=== PATIENT | female | born 1995 | race Caucasian/White ===

== ENCOUNTER 2022-07-18 10:09 | Outpatient (CLI) | payer OTHER, SELFPAY ==
[2022-07-18 11:51] LABS: Basophils Percent Auto 0.3 % (0.2-1.2); Eosinophils Absolute Auto 0.2 K/mm3 (0-0.3); Eosinophils Percent Auto 1.9 % (0-4.4); Hematocrit 35.2 % (37.0-47.0); Hemoglobin 11.7 g/dL (12.0-15.0); Immature Granulocyte Absolute 0.15 K/mm3 (0.00-0.031); Immature Granulocyte Percent A 1.4 % (0-0.5); Lymphocytes Absolute Auto 2.07 K/mm3 (0.9-3.2); Lymphocytes Percent Auto 19.4 % (18.3-44.2); Mean Corpuscular HGB Conc 33.2 g/dl (32-36); Mean Corpuscular Hemoglobin 31.8 pg (26-34); Mean Corpuscular Volume 95.7 fl (80-100); Mean Platelet Volume 9.3 fl (7.4-10.4); Monocytes Absolute Auto 0.6 K/mm3 (0.1-0.6); Monocytes Percent Auto 5.5 % (2.6-8.5); Neutrophils Absolute Auto 7.7 K/mm3 (1.3-6.7); Neutrophils Percent Auto 71.5 % (45.5-73.1); Platelet Count Result 286 k/mm3 (150-375); Red Blood Count 3.68 M/mm3 (4.2-5.4); Red Cell Distribution Width 12.7 % (11.5-14.5); White Blood Count 10.7 K/mm3 (4.5-10.0)
[2022-07-18 12:08] LABS: Glucose 1 Hour PP 50gm Dose 121 mg/dL
[2022-07-18 12:47] LABS: HIV 1/2 Ab P24 Ag Result Negative (Negative)
== END 2022-07-18 10:10 | disposition home or self-care (01) ==
PROVIDERS: PCP Student in an Organized Health Care Education/Training Program; Visit Provider Student in an Organized Health Care Education/Training Program
DX: Z34.90 Encounter for supervision of normal pregnancy, unspecified, unspecified trimester (principal); Z3A.00 Weeks of gestation of pregnancy not specified
CPT/HCPCS: 36415; 82947; 85025; 86703; G0432

== ENCOUNTER 2022-09-14 08:24 | Observation (INO) | payer OTHER, SELFPAY ==
[2022-09-14] VITALS (29 sets, daily range): BP systolic 101–128; BP diastolic 62–85; PULSE 25–137; TEMP 37.1–37.3; O2SAT 84–100; BMI 25.9
--- NOTE | 2022-09-14 08:40 | OBADM ---
This patient, Helder Murdock, admitted to the OB room OB Post 116 for observation. Patient/family oriented to hospital policies and general routines including ID bracelet, bed and alarms, visiting hours, pain management, procedures, bathroom and other care routines, personal items, smoking policy, room service/diet, and visiting hours. Patient/Family are encouraged to report perceived risks to care and to ask questions if they do not understand what they are told or what they should do.
[2022-09-14] MEDS: NIFEdipine 10 MG CAPSULE 20 MG PO (09:32)
[2022-09-14] MEDS: BETAMETHASONE SOD PHOS/ACETATE 30 MG/5 ML VIAL 12 MG IM (09:35)
--- NOTE | 2022-09-15 11:27 | PM.OBTRLD ---
OB - Triage/Final Diagnosis Visit Information Date of evaluation: 09/14/22 Reason for evaluation: threatened labor Comments/Additional reasons for admission: I have assessed the risk for this patient, Helder Murdock, and determined that she would benefit from observation care. Evaluation Vital signs: Vital Signs - 24 hr 09/14/22 11:29 09/14/22 11:34 09/14/22 11:39 Pulse Rate Blood Pressure Pulse Oximetry 97 96 95 09/14/22 11:44 09/14/22 11:49 09/14/22 11:54 Pulse Rate Blood Pressure Pulse Oximetry 93 100 97 09/14/22 11:59 09/14/22 12:00 09/14/22 12:04 Pulse Rate 105 H Blood Pressure 104/70 Pulse Oximetry 95 100 09/14/22 12:09 09/14/22 12:14 09/14/22 12:19 Pulse Rate Blood Pressure Pulse Oximetry 96 94 96 09/14/22 12:24 09/14/22 12:29 Pulse Rate Blood Pressure Pulse Oximetry 97 97
== END 2022-09-14 12:45 | disposition home or self-care (01) ==
PROVIDERS: Admitting Provider Student in an Organized Health Care Education/Training Program; Visit Provider Student in an Organized Health Care Education/Training Program
DX: O47.03 False labor before 37 completed weeks of gestation, third trimester (principal); Z3A.35 35 weeks gestation of pregnancy
CPT/HCPCS: 96372; A9270; G0378; G0379; J0702

== ENCOUNTER 2022-09-15 09:28 | Outpatient (RCR) | payer OTHER, SELFPAY ==
[2022-09-13 11:00] VITALS: BP 108/72; PULSE 115
--- NOTE | ~2022-09-15 | US_ITS ---
EXAMINATION: US OB BPP wo non-stress DATE: 09/13/2022 11:01 WASTEWATER TREATMENT PLANT ATTENDANT INDICATION: Positive antiphospholipids TECHNIQUE: Real-time transabdominal obstetric ultrasound. FINDINGS: There is a single living fetus in vertex presentation. The placenta is fundal without placenta previ a. cardiac activity and movement is noted with a heart rate of 146 beats per minute. Biophysical profile: breathin of 2 movement: 2 of 2 tone: 2 of 2 Amniotic flud pocket: 2 of 2 Total score: 8 of 8 IMPRESSION: 1. Single living intrauterine in vertex presentation. 2: Total biophysical profile score of 8/8. Reviewed, dictated and finalized at location B. EW[employer] TREATMENT PLANT ATTENDANT
== END 2022-11-03 12:46 | disposition home or self-care (01) ==
LOC: ANHOBOP 09:28
PROVIDERS: Visit Provider Student in an Organized Health Care Education/Training Program
DX: O99.119 Other diseases of the blood and blood-forming organs and certain disorders involving the immune mechanism complicating pregnancy, unspecified trimester (principal); D68.61 Antiphospholipid syndrome; Z3A.35 35 weeks gestation of pregnancy
CPT/HCPCS: 59025; 76819

== ENCOUNTER 2022-09-15 09:28 | Outpatient (CLI) | payer OTHER, SELFPAY ==
[2022-09-15 10:00] VITALS: BMI 25.9
[2022-09-15] MEDS: BETAMETHASONE SOD PHOS/ACETATE 30 MG/5 ML VIAL 12 MG IM (11:05)
== END 2022-09-15 11:20 | disposition home or self-care (01) ==
LOC: ANHOBOP 09:38 → ANHLDR 09:39
PROVIDERS: Visit Provider Student in an Organized Health Care Education/Training Program
DX: O13.9 Gestational [pregnancy-induced] hypertension without significant proteinuria, unspecified trimester (principal); Z3A.00 Weeks of gestation of pregnancy not specified
CPT/HCPCS: 59025; 96372; 99199; J0702

== ENCOUNTER 2022-09-16 22:32 | Observation (INO) | payer OTHER, SELFPAY ==
[2022-09-16 22:45] VITALS: BMI 25.9
[2022-09-16 22:55] VITALS: BP 123/85; PULSE 99
[2022-09-16 23:00] VITALS: BP 113/80; PULSE 100
[2022-09-16 23:13] LABS: Add Urine Microscopic? YES; Appearance Urine Clear (Clear); Bilirubin Urine Negative (Negative); Blood Urine Negative (Negative); Color Urine Light Yellow (Yellow); Glucose Urine UA Negative (Negative); Ketones Urine 2+ mg/dL (Negative); Leukocyte Esterase Ur 2+ LEU/UL (Negative); Nitrate Urine Negative (Negative); Protein Urine Negative (Negative); Urobilinogen Urine 0.2 mg/dL (<2.0)
[2022-09-16 23:15] VITALS: BP 118/79; PULSE 87
[2022-09-16 23:19] LABS: Bacteria Urine 1+ /hpf; Mucus Urine Rare /lpf; Squamous Epithelial Cell Urine Few /hpf (Few); WBC Urine 16-20 /hpf
[2022-09-16 23:30] VITALS: BP 110/83; PULSE 90
[2022-09-16 23:45] VITALS: BP 114/77; PULSE 91
[2022-09-17] VITALS: BP 114/78; PULSE 84
--- NOTE | 2022-09-17 00:10 | OBADM ---
This patient, Helder Murdock, admitted to the OB room OB Post 115 for observation. Patient/family oriented to hospital policies and general routines including ID bracelet, bed and alarms, visiting hours, pain management, procedures, bathroom and other care routines, personal items, smoking policy, room service/diet, and visiting hours. Patient/Family are encouraged to report perceived risks to care and to ask questions if they do not understand what they are told or what they should do.
[2022-09-17 00:15] VITALS: BP 114/74; PULSE 90
[2022-09-17 00:30] VITALS: BP 110/73; PULSE 90
--- NOTE | 2022-09-17 07:54 | PM.OBTRLD ---
OB - Triage/Final Diagnosis Visit Information Date of evaluation: 09/16/22 Reason for evaluation: threatened labor Comments/Additional reasons for admission: I have assessed the risk for this patient, Helder Murdock, and determined that she would benefit from observation care. Evaluation Laboratory results: Laboratory Tests 09/16/22 22:56 Urine Color Light yellow Urine Appearance Clear Urine pH 6.0 Ur Specific [place] 1.020 Urine Protein Negative Urine Glucose (UA) Negative Urine Ketones 2+ H Ur Blood (Man) Negative Urine Nitrate Negative Urine Bilirubin Negative Urine Urobilinogen 0.2 Leukocyte Esterase Rfl 2+ H Urine RBC 3-5 H Urine WBC 16-20 H Ur Squamous Epith Cells Few Urine Bacteria 1+ H Urine Mucus Rare Vital signs: Vital Signs - 24 hr 09/16/22 22:55 09/16/22 23:00 09/16/22 23:15 Pulse Rate 99 100 87 Blood Pressure 123/85 113/80 118/79 09/16/22 23:30 09/16/22 23:45 09/17/22 00:00 Pulse Rate 90 91 84 Blood Pressure 110/83 114/77 114/78 09/17/22 00:15 09/17/22 00:30 Pulse Rate 90 90 Blood Pressure 114/74 110/73
== END 2022-09-17 00:45 | disposition home or self-care (01) ==
PROVIDERS: Admitting Provider Student in an Organized Health Care Education/Training Program; Visit Provider Student in an Organized Health Care Education/Training Program
DX: O47.03 False labor before 37 completed weeks of gestation, third trimester (principal); Z3A.36 36 weeks gestation of pregnancy
CPT/HCPCS: 81001; 87086; G0378; G0379

== ENCOUNTER 2022-09-21 16:20 | Observation (INO) | payer OTHER, SELFPAY ==
[2022-09-21 16:51] VITALS: BP 124/89; PULSE 111
[2022-09-21 17:00] VITALS: BP 119/84; PULSE 114
[2022-09-21 17:15] VITALS: BP 122/81; PULSE 99
[2022-09-21 17:16] VITALS: BP 122/81; PULSE 99
[2022-09-21 17:17] VITALS: BMI 26.6
--- NOTE | 2022-09-21 17:17 | OBADM ---
This patient, Helder Murdock, admitted to the OB room Labor/Delivery/Recovery 106 for observation. Patient/family oriented to hospital policies and general routines including ID bracelet, bed and alarms, visiting hours, pain management, procedures, bathroom and other care routines, personal items, smoking policy, room service/diet, and visiting hours. Patient/Family are encouraged to report perceived risks to care and to ask questions if they do not understand what they are told or what they should do.
[2022-09-21 17:30] VITALS: BP 125/86; PULSE 97
[2022-09-21 17:45] VITALS: BP 118/79; PULSE 107
--- NOTE | 2022-09-28 07:26 | PM.OBTRLD ---
OB - Triage/Final Diagnosis Visit Information Reason for evaluation: threatened labor Comments/Additional reasons for admission: I have assessed the risk for this patient, Helder Murdock, and determined that she would benefit from observation care.
== END 2022-09-21 18:05 | disposition home or self-care (01) ==
PROVIDERS: Admitting Provider Obstetrics & Gynecology; Visit Provider Obstetrics & Gynecology
DX: O47.03 False labor before 37 completed weeks of gestation, third trimester (principal); Z3A.36 36 weeks gestation of pregnancy
CPT/HCPCS: G0378; G0379

== ENCOUNTER 2022-10-05 06:07 | Inpatient (IN) | payer OTHER, SELFPAY ==
[2022-10-05] VITALS (70 sets, daily range): BP systolic 85–169; BP diastolic 50–148; PULSE 75–168; RESP 16–18; TEMP 36.1–37.6; O2SAT 82–100; BMI 23.4
[2022-10-05] MEDS: LACTATED RINGERS 1,000 ML 125 ML IV CONT (06:54)
[2022-10-05 06:55] LABS: Basophils Absolute Auto 0.1 K/mm3 (0.0-0.1); Basophils Percent Auto 0.6 % (0.2-1.2); Eosinophils Absolute Auto 0.1 K/mm3 (0-0.3); Eosinophils Percent Auto 1.2 % (0-4.4); Hematocrit 34.9 % (37.0-47.0); Hemoglobin 11.3 g/dL (12.0-15.0); Immature Granulocyte Absolute 0.13 K/mm3 (0.00-0.031); Immature Granulocyte Percent A 1.5 % (0-0.5); Lymphocytes Absolute Auto 2.82 K/mm3 (0.9-3.2); Lymphocytes Percent Auto 32.5 % (18.3-44.2); Mean Corpuscular HGB Conc 32.4 g/dl (32-36); Mean Corpuscular Hemoglobin 29.1 pg (26-34); Mean Corpuscular Volume 89.9 fl (80-100); Mean Platelet Volume 10.5 fl (7.4-10.4); Monocytes Absolute Auto 0.5 K/mm3 (0.1-0.6); Monocytes Percent Auto 6.2 % (2.6-8.5); Platelet Count Result 215 k/mm3 (150-375); Red Blood Count 3.88 M/mm3 (4.2-5.4); Red Cell Distribution Width 14.7 % (11.5-14.5); White Blood Count 8.7 K/mm3 (4.5-10.0)
[2022-10-05] MEDS: OXYTOCIN 30 UNITS/NS 500 ML 30 UNITS/500 ML BAG IV CONT (06:59)
--- NOTE | 2022-10-05 07:17 | PM.IMHP ---
H&P: HPI History of Present Illness Date/Time: 10/05/22 07:17 Chief Complaint: Intrauterine at term antiphospholipid antibody syndrome Narrative: 26 yo at 38w6d who presents for IOL for antiphospholipid antibody syndrome. Pt has been on lovenox and aspirin throughout her . She was transitioned to Heparin at 36w. Her has been uncomplicated thus far. Review of Systems Cardiovascular: Cardiovascular: Denies chest pain, Denies leg edema, Denies palpitations, Denies dyspnea and Denies dyspnea on exertion Respiratory: Respiratory: Denies cough, Denies dyspnea and Denies dyspnea on exertion Gastrointestinal: Gastrointestinal: Denies abdominal pain, Denies constipation, Denies diarrhea, Denies nausea and Denies vomiting Genitourinary: Genitourinary: Denies hematuria, Denies urinary frequency, Denies dysuria, Denies pelvic pain, Denies urinary incontinence and Denies vaginal discharge Neurologic: Reports system reviewed and no additional complaints, except as documented Psychiatric: Psychiatric: Reports no additional psychiatric complaints Endocrine: Endocrine: Denies palpitations PMF Past Medical History Medical History Anti-phospholipid antibody syndrome rx meds Family History Family History Grandparent Cerebrovascular accident maternal grandmother Breast cancer maternal grandmother double mastectomy Social History Social History Smoking status: Never smoker Alcohol intake: never Substance use: never Substance use type: does not use Additional living arrangements comments: Additional occupation/education comments: homemaker Gender identity (if verbalized by the patient): Female Sexual Orientation (if Verbalized by the Patient): Straight or Heterosexual Spiritual care concerns: No Meds Home Medications and Allergies Home Medications Medication Instructions Recorded Confirmed Type heparin (porcine) 10,000 unit/mL 5,000 unit subcut Q12H 09/13/22 09/21/22 History injection solution Allergies Allergy/AdvReac Type Severity Reaction Status Date / Time cefaclor [From Ceclor] Allergy Intermediate Rash Verified 09/28/22 10:45 cefazolin [From Ancef] Allergy Intermediate Rash Verified 09/28/22 10:45 Vital Signs Vital Signs - 24 hr 10/05/22 07:02 10/05/22 07:00 10/05/22 07:15 Temperature 97 F L Pulse Rate 106 H 104 H Blood Pressure 122/81 118/88 Exam Const: General: no acute distress Eyes: EOM: EOMs intact bilaterally Neck: Neck: supple Thyroid: thyroid normal Chest: Breast/axilla inspection: normal inspection of the breasts Breast/axilla palpation: normal palpation of the breasts, normal palpation of the axillae and no axillary lymphadenopathy Resp: Effort & Inspection: normal respiratory effort Auscultation: clear to auscultation bilaterally Cardio: Rate: regular rate Rhythm: regular rhythm GI: Inspection: non-distended and other (Gravid) GI Palp: Yes Soft to palpation, No Tenderness to palpation present (GI) and No Guarding due to palpation present (GI) Auscultation: normal bowel sounds : Speculum Exam - Vagina: No vaginal bleeding OB/external & speculum: external exam normal; No vaginal bleeding Skin: General skin exam: normal color and no rashes or lesions noted Neuro: Cognition (Neuro): normal cognition Speech: normal speech Extrem: General: normal to inspection Psych: Mental Status: mental status grossly normal Affect: normal affect H&P: Results Labs Labs: Short CBC 10/05/22 Range/Units 06:40 WBC 8.7 (4.5-10.0) K/mm3 Hgb 11.3 L (12.0-15.0) g/dL Hct 34.9 L (37.0-47.0) % Plt Count 215 (150-375) k/mm3 Assessment and Plan Assessment and plan (1) Anti-phospholipid antibody syndrome: Code(s
--- NOTE | 2022-10-05 07:18 | LDADM ---
This patient, Helder Murdock, was admitted to Labor/Delivery/Recovery 104 on 10/05/22 at 06:07. Plans for labor, pain management and were discussed with patient. Patient/family oriented to hospital policies and general routines including ID bracelet, bed and alarms, visiting hours, pain management, procedures, bathroom and other care routines, personal items, smoking policy, room service/diet and guest tray routines, security routines, and visiting hours. Patient/Family are encouraged to report perceived risks to care and to ask questions if they do not understand what they are told or what they should do. See OBIX for further documentation.
[2022-10-05 07:41] LABS: HIV 1/2 Ab P24 Ag Result Negative (Negative)
--- NOTE | 2022-10-05 08:44 | WPDANESEPP ---
Anes - Eval Pre Procedure Procedure: Labor epidural Date/Time: 10/05/22 08:44 Surgeon: Lashon Preop Diagnosis: Pain during labor Pre Op Diagnosis: Induction of Labor Patient Data Age: 26 Gender: F Height: 1.52 m Weight: 54.5 kg Last Vital Signs Temp 36.1 C L 10/05/22 07:00 Pulse 97 10/05/22 08:30 BP 132/93 H 10/05/22 08:30 Allergies Allergy/AdvReac Type Severity Reaction Status Date / Time cefaclor [From Ceclor] Allergy Intermediate Rash Verified 09/28/22 10:45 cefazolin [From Ancef] Allergy Intermediate Rash Verified 09/28/22 10:45 Home Medications Medication Instructions Recorded Confirmed Type heparin (porcine) 10,000 unit/mL 5,000 unit subcut Q12H 09/13/22 10/05/22 History injection solution Laboratory Tests 10/05/22 10/05/22 10/05/22 06:40 06:40 06:40 WBC 8.7 K/mm3 K/mm3 (4.5-10.0) RBC 3.88 M/mm3 L M/mm3 (4.2-5.4) Hgb 11.3 g/dL L g/dL (12.0-15.0) Hct 34.9 % L % (37.0-47.0) MCV 89.9 fl fl (80-100) MCH 29.1 pg pg (26-34) MCHC 32.4 g/dl g/dl (32-36) RDW 14.7 % H % (11.5-14.5) Plt Count 215 k/mm3 k/mm3 (150-375) MPV 10.5 fl H fl (7.4-10.4) Immature Gran % (Auto) 1.5 % H % (0-0.5) Neut % (Auto) 58.0 % % (45.5-73.1) Lymph % (Auto) 32.5 % % (18.3-44.2) [place] % (Auto) 6.2 % % (2.6-8.5) Eos % (Auto) 1.2 % % (0-4.4) Baso % (Auto) 0.6 % % (0.2-1.2) Lymph # (Auto) 2.82 K/mm3 K/mm3 (0.9-3.2) [place] # (Auto) 0.5 K/mm3 K/mm3 (0.1-0.6) Eos # (Auto) 0.1 K/mm3 K/mm3 (0-0.3) Baso # (Auto) 0.1 K/mm3 K/mm3 (0.0-0.1) Abs Immat Gran (auto) 0.13 K/mm3 H K/mm3 (0.00-0.031) Absolute Neuts (auto) 5.0 K/mm3 K/mm3 (1.3-6.7) Absolute Nucleated RBC 0.0 K/mm3 K/mm3 (0.0-0.012) Nucleated RBC % 0.0 % % (0.0-0.2) RPR Pending HIV 1&2 Ab/P24 Ag 4thGn Negative (Negative) Blood Type Antibody Screen 10/05/22 06:40 WBC RBC Hgb Hct MCV MCH MCHC RDW Plt Count MPV Immature Gran % (Auto) Neut % (Auto) Lymph % (Auto) [place] % (Auto) Eos % (Auto) Baso % (Auto) Lymph # (Auto) [place] # (Auto) Eos # (Auto) Baso # (Auto) Abs Immat Gran (auto) Absolute Neuts (auto) Absolute Nucleated RBC Nucleated RBC % RPR HIV 1&2 Ab/P24 Ag 4thGn Blood Type A Positive Antibody Screen Negative Patient hx anesthesia problems: none Family hx anesthesia problems: none Results Review: All pre-operative results and documents have been reviewed as part of the pre-operative evaluation. [facility] Past Medical History Medical History Anti-phospholipid antibody syndrome rx meds Family History Family History Grandparent Cerebrovascular accident maternal grandmother Breast cancer maternal grandmother double mastectomy Social History Social History Smoking status: Never smoker Alcohol intake: never Substance use: never Substance use type: does not use Lack of Transportation: No Lack of Food: Never True Current Housing: I Have Housing Concerned About Future Housing: No Difficulty Paying Gas/Electric Bills: No Difficulty Paying for Meds: No Currently Unemployed: No Education: Bachelor's Degree Difficulty w/ Childcare or Family Care: No Additional living arrangements comments: Additional occupation/education comments: homemaker Gender identity (if verbalized by the patient): Female Sexual Orientation (if Verb
[2022-10-05] MEDS: LACTATED RINGERS 1,000 ML 999 ML IV CONT (08:49)
--- NOTE | 2022-10-05 10:51 | PM.OBPRVD ---
OB - Delivery Note Procedure Procedure: Patient pushed for a spontaneous vaginal delivery. The fetus was delivered atraumatically and placed on the maternal abdomen. The cord was clamped and cut after 1 minute of life. The cord was double clamped and cut and a segment of cord was collected for cord gases. Cord blood was collected for blood type and Coomb's testing. The placenta delivered spontaneously and was noted to be intact. The perineum was inspected and there was a 1st degree perineal laceration. The laceration was repaired with 3-0 vicryl in the usual fashion. The uterus was firm and good hemostasis was noted. The patient and fetus were stable in the delivery room. Induction method: Per Pitocin Protocol Delivery augmentation: Rupture of Membranes Delivery monitor: External FHT Route of delivery: Episiotomy description: None Laceration Description: Perineal - 1st Degree Delivery repair: vicryl Specimen: No Quantitative Blood Loss (ml): 250 Anesthesia type: Epidural Disposition: Floor () Complications: No immediate complications [place] Baby Date of : 10/05/22 Time of : 10:37 Weeks of gestation at delivery: 38 gender: Female Weight (pounds): 5 Weight (ounces): 15 presentation: vertex position: Right Occiput Anterior Placenta delivery description: Spontaneous Cord Vessel Description: 3 Vessels score one minute: 9 score five minutes: 9 AMG Delivery Billing Delivery Delivery: Delivery Charge
[2022-10-05] MEDS: OXYTOCIN 30 UNITS/NS 500 ML 30 UNITS/500 ML BAG 125 UNITS IV CONT (11:19)
--- NOTE | 2022-10-05 14:20 | PC.NURSE ---
Patient transferred to post room #279 via wheelchair. Support person present. Oriented to unit, room, information board, rooming in, admission packet and security measures. Patient verbalizes understanding.
[2022-10-05] MEDS: IBUPROFEN 600 MG TABLET PO (14:58)
[2022-10-05 16:29] LABS: Rapid Plasma Reagin Non-Reactive (NonReactive)
[2022-10-05] MEDS: ACETAMINOPHEN 325 MG TABLET 650 MG PO (19:58)
[2022-10-06 00:09] VITALS: BP 104/69; PULSE 82; RESP 18; TEMP 36.8; O2SAT 100
[2022-10-06] MEDS: IBUPROFEN 600 MG TABLET PO ×2 (00:09→08:08)
[2022-10-06 04:18] VITALS: BP 113/73; PULSE 74; RESP 18; TEMP 36.7; O2SAT 100
[2022-10-06 05:38] LABS: Hematocrit 32.4 % (37.0-47.0); Hemoglobin 10.6 g/dL (12.0-15.0)
--- NOTE | 2022-10-06 07:19 | WPDANLDPN2 ---
Anes-Prog Note L&D Date/Time: 10/06/22 07:19 Comfortable throughout: labor and delivery Neuraxial method: epidural Epidural/Spinal procedure site: clean & non-tender Neuro status: Neuro function grossly intact. Cardiovascular status: normal Respiratory status: normal Airway patency: baseline Mental status: baseline Post-Op hydration status: normal Vital Signs: Last Vital Signs Temp 36.7 C 10/06/22 04:18 Pulse 74 10/06/22 04:18 Resp 18 10/06/22 04:18 BP 113/73 10/06/22 04:18 Pulse Ox 100 10/06/22 04:18 O2 Del Method Room Air 10/05/22 14:30 Pain score (VAS): 10/10 I/O: Intake & Output 10/05/22 10/05/22 10/06/22 15:59 23:59 07:59 Intake Total 2000 240 Output Total 1050 Balance 950 240 Post-procedural complaints: none Patient feedback: Patient satisfied with anesthetic care.
--- NOTE | 2022-10-06 07:51 | PM.OBDSVD ---
DS: Admitting Diagnosis Discharge Date 10/06/2022 Admitting Diagnosis OB - DS: Summary OB Procedures : None OB Procedures Intrapartum: Spontaneous Vag Delivery OB Procedures: : None Time Spent with Patient Time attestation: Total time spent providing and/or coordinating discharge services: DS: Data Data Completed and Pending Pending studies at discharge: Pending at discharge 10/05/22 10:40 Surgical [PTH] Routine Labs on day of discharge: Labs from last 24 hours 10/06/22 10/05/22 10/05/22 04:24 06:40 06:40 Hgb 10.6 L Hct 32.4 L RPR Non-reactive Blood Type A Positive Antibody Screen Negative Discharge Plan Discharge Discharging Clinician: Apolinar Heck Patient Disposition: Home, Self-Care Activity: as tolerated Diet: as tolerated Patient Instructions: Antibiotic Form Stand Alone Forms: General Discharge Information Follow-up/Referrals: Kolby Oates MD [Physician] - 3 Weeks Discharge Medications: New enoxaparin [Lovenox] 40 mg/0.4 mL Syringe 40 mg subcut DAILY Qty: 42 0RF ibuprofen 600 mg Tablet 600 mg PO Q6H PRN (Reason: Cramping) Qty: 30 0RF Discontinued heparin (porcine) 10,000 unit/mL solution 5,000 unit subcut Q12H Rx Instructions: To start on 09/13/22 Date of admission: 10/05/22 06:07 Primary Care Provider: UNKNOWN,DOCTOR Admitting Provider: Kolby Oates Attending physician on admission: Kolby Oates Condition: Stable
[2022-10-06] MEDS: MULTIVIT/MIN/PREN/FOL AC/IRON TABLET 1 TAB PO (08:08)
[2022-10-06] MEDS: ENOXAPARIN 40 MG/0.4 ML SYRINGE SUB-Q (08:09)
[2022-10-06 08:20] VITALS: BP 113/71; PULSE 98; RESP 18; TEMP 36.9; O2SAT 99
[2022-10-06] MEDS: ACETAMINOPHEN 325 MG TABLET 650 MG PO (13:09)
--- NOTE | 2022-10-06 17:09 | PC.NURSE ---
[id number] Introductions were made and mother states she will call when her is returned to her. RN encouraged unwrapping, undressing and placing infant skin to skin. [phone] Mother called for feeding assistance. RN encouraged and demonstrated mother to undress, unwrap and stimulate with massage touch, talking, changing the position. Left breast has a small purple area on the areola. Mother states infant didn't latch correctly last night and her nipples are very sore. There is no injury seen other than the linear purple area on the areola. RN will return. [phone] Mother works well with her infant with encouragement and education. Encouraged understanding of the benefits of skin to skin (demonstrating unwrapping and placing upright on her chest), stimulating with massage touch, changing positions to encourage wakefulness, how to watch for early feeding cues, responsive feeding, feeding on demand (aiming for 8-12 times in 24 hours, about every 2-3 hours), milk production, building/maintaining a milk supply, duration of feeding, signs of adequate intake/output and how to record on the feeding sheet. Reviewed positioning and ear, shoulder, hip alignment, supporting the breast to facilitate a deep latch, asymmetrical latch (off-center), leading with the chin with a big, open, wide gape and body close to mother. Infant latched optimally to the left breast in cross cradle position. Education given to mother of how to visualize suck/swallow ratios and listen for drinking at the breast. was able to maintain latch without discomfort to mother with exception to pinching discomfort. Mother states it felt uncomfortable at first, then subsided, then said the pinching slight discomfort didn't go away. Infant was detached after 10 minutes with no misshape to the nipple, then offered the right breast using football positioning after feeding cues were visualized. Nipple care reviewed with optimal latch and good positioning. has good rocking motion and suck/swallow ratios. Reviewed good handwashing when or touching the breast/nipples to prevent infection. Resources used to facilitate learning were used with the breast teaching tool, mom and baby guide. Mother voiced understanding of skin to skin, stimulating with massage touch, responsive feedings, hand expressed colostrum, talking to to encourage if it has been 2 -2.5 hours since the start of the last , to call if infant does not latch, or if there is discomfort with . Resources provided for inpatient/outpatient with the office number on the feeding sheet and the mom/baby guide resources. Mother voiced understanding of information, demonstrated learning and will call if there is a request for assistance. Reported to the primary RN.
[2022-10-09 09:44] VITALS: BP 120/77; PULSE 87; RESP 18; TEMP 37.1; O2SAT 99
== END 2022-10-06 14:35 | disposition home or self-care (01) | DRG 806 ==
LOC: ANHOB2 10-06 09:51 → ANHLDR 10-09 08:48 → ANHOB2 10-09 08:48
PROVIDERS: Admitting Provider Student in an Organized Health Care Education/Training Program; Visit Provider Obstetrics & Gynecology
DX: O99.12 Other diseases of the blood and blood-forming organs and certain disorders involving the immune mechanism complicating childbirth (principal); D68.61 Antiphospholipid syndrome; Z37.0 Single live birth; O70.0 First degree perineal laceration during delivery; Z3A.38 38 weeks gestation of pregnancy
CPT/HCPCS: 36415; 85014; 85018; 85025; 86592; 86703; 86850; 86900; 86901; 88307; A9270; G0432; J1650; J2590; J2795; J7120

== ENCOUNTER 2023-07-31 14:09 | Outpatient (CLI) | payer OTHER, SELFPAY ==
[2023-07-31 14:57] LABS: Basophils Percent Auto 0.4 % (0.2-1.2); Eosinophils Absolute Auto 0.3 K/mm3 (0-0.3); Eosinophils Percent Auto 4.4 % (0-4.4); Hematocrit 40.6 % (37.0-47.0); Hemoglobin 13.6 g/dL (12.0-15.0); Immature Granulocyte Absolute 0.03 K/mm3 (0.00-0.031); Immature Granulocyte Percent A 0.4 % (0-0.5); Lymphocytes Absolute Auto 1.73 K/mm3 (0.9-3.2); Lymphocytes Percent Auto 25.6 % (18.3-44.2); Mean Corpuscular HGB Conc 33.5 g/dl (32-36); Mean Corpuscular Hemoglobin 31.3 pg (26-34); Mean Corpuscular Volume 93.3 fl (80-100); Mean Platelet Volume 9.8 fl (7.4-10.4); Monocytes Absolute Auto 0.4 K/mm3 (0.1-0.6); Monocytes Percent Auto 6.1 % (2.6-8.5); Neutrophils Absolute Auto 4.3 K/mm3 (1.3-6.7); Neutrophils Percent Auto 63.1 % (45.5-73.1); Platelet Count Result 330 k/mm3 (150-375); Red Blood Count 4.35 M/mm3 (4.2-5.4); Red Cell Distribution Width 12.1 % (11.5-14.5); White Blood Count 6.8 K/mm3 (4.5-10.0)
[2023-07-31 15:46] LABS: HIV 1/2 Ab P24 Ag Result Negative (Negative)
[2023-07-31 16:00] LABS: Hepatitis B Surface Antigen Negative (Negative); Rubella IgG Antibody 27.3 IU/ML
[2023-08-01 11:03] LABS: Rapid Plasma Reagin Non-Reactive (NonReactive)
[2023-08-03 16:21] LABS: CMV IgG Antibody <0.60 U/mL (<0.60)
== END 2023-07-31 14:10 | disposition home or self-care (01) ==
PROVIDERS: Visit Provider Student in an Organized Health Care Education/Training Program
DX: N94.89 Other specified conditions associated with female genital organs and menstrual cycle (principal)
CPT/HCPCS: 36415; 84702; 85025; 86592; 86644; 86703; 86747; 86762; 86787; 86850; 86900; 86901; 87086; 87340; G0432

== ENCOUNTER 2023-08-09 10:17 | Outpatient (CLI) | payer OTHER, SELFPAY | END 2023-08-09 10:18 | disposition home or self-care (01) | PROVIDERS: Visit Provider Student in an Organized Health Care Education/Training Program | DX: N94.89 Other specified conditions associated with female genital organs and menstrual cycle (principal) | CPT/HCPCS: 36415; 84702 ==

== ENCOUNTER → 2023-08-17 13:15 | Outpatient (CLI) | payer OTHER, SELFPAY ==
--- NOTE | ~2023-08-17 | US_ITS ---
Pelvic ultrasound. Clinical History: First trimester , establish dates and viability Technique: Realtime transabdominal and transvaginal scanning of the pelvis was performed. Color flow Doppler and Doppler spectral analysis were performed. Findings: The uterus is anteverted, and contains an intrauterine gestational sac. There is a 2.5 x 1. 2 x 1.5 centers subchorionic hemorrhage adjacent to the gestational sac. pole and yolk sac are present. Deal-rump length of 5 mm corresponds to an estimated gestational age of 6 weeks 1 day. Feta l heart rate is 132 bpm. The right ovary measures 3.2 x 2.6 x 2.1 cm. No significant right ovarian or adnexal mass is seen. The left ovary measures 2.3 x 1.6 x 2.2 cm. No significant left ovarian or adnexal mass is seen. There is trace free fluid in the cul de sac. Impression: Live intrauterine gestation with estimated gestational age of 6 weeks 1 day. heart rate is 132 bpm. Subchronic hemorrhage, as detailed above. Trace free fluid in the pelvis. Reviewed, dictated and finalized at location M. ER TREATMENT PLANT OPERATOR Impression: Live intrauterine gestation with estimated gestational age of 6 weeks 1 day. Fe kavon heart rate is 132 bpm. Subchronic hemorrhage, as detailed above. Trace free fluid in the pelvis.
== END ==
PROVIDERS: PCP Student in an Organized Health Care Education/Training Program; Visit Provider Student in an Organized Health Care Education/Training Program
DX: O36.80X0 Pregnancy with inconclusive fetal viability, not applicable or unspecified (principal); Z3A.00 Weeks of gestation of pregnancy not specified
CPT/HCPCS: 76801; 76817

== ENCOUNTER 2024-01-21 10:24 | Outpatient (CLI) | payer OTHER, SELFPAY ==
[2024-01-21 12:36] LABS: Hematocrit 33.7 % (37.0-47.0); Hemoglobin 10.8 g/dL (12.0-15.0); Mean Corpuscular Hemoglobin 29.6 pg (26-34); Mean Corpuscular Volume 92.3 fl (80-100); Mean Platelet Volume 9.8 fl (7.4-10.4); Platelet Count Result 257 k/mm3 (150-375); Red Blood Count 3.65 M/mm3 (4.2-5.4); Red Cell Distribution Width 12.7 % (11.5-14.5); White Blood Count 8.9 K/mm3 (4.5-10.0)
[2024-01-21 13:07] LABS: Glucose 1 Hour PP 50gm Dose 124 mg/dL
[2024-01-21 13:46] LABS: HIV 1/2 Ab P24 Ag Result Negative (Negative)
== END 2024-01-21 10:25 | disposition home or self-care (01) ==
LOC: ANHLAB 10:25
PROVIDERS: PCP Family Medicine; Visit Provider Student in an Organized Health Care Education/Training Program
DX: Z34.90 Encounter for supervision of normal pregnancy, unspecified, unspecified trimester (principal); Z3A.00 Weeks of gestation of pregnancy not specified
CPT/HCPCS: 36415; 82947; 85027; 86703; G0432

== ENCOUNTER 2024-02-22 15:00 | Observation (INO) | payer OTHER, SELFPAY ==
[2024-02-22] MEDS: ONDANSETRON INJ 4 MG/2 ML VIAL IV PUSH (15:32)
[2024-02-22] MEDS: DEXTROSE 5%/LACTATED RINGERS 1,000 ML 999 ML IV CONT ×2 (15:36→16:52)
[2024-02-22 15:45] VITALS: BP 100/67; PULSE 97
[2024-02-22 16:00] VITALS: BP 115/72; PULSE 90
[2024-02-22 16:07] VITALS: BMI 26.2
--- NOTE | 2024-02-22 16:07 | OBADM ---
This patient, Helder Murdock, admitted to the OB room OB Post 113 for observation. Patient/family oriented to hospital policies and general routines including ID bracelet, bed and alarms, visiting hours, pain management, procedures, bathroom and other care routines, personal items, smoking policy, room service/diet, and visiting hours. Patient/Family are encouraged to report perceived risks to care and to ask questions if they do not understand what they are told or what they should do.
[2024-02-22 16:15] VITALS: BP 103/75; PULSE 95
[2024-02-22 16:26] VITALS: BP 103/75; PULSE 95
[2024-02-22] MEDS: CALCIUM CARBONATE (TUMS) 500 MG (200 MG ELEMENTAL) PO (18:03)
== END 2024-02-22 18:25 | disposition home or self-care (01) ==
PROVIDERS: Admitting Provider Obstetrics & Gynecology; PCP Family Medicine; Visit Provider Obstetrics & Gynecology
DX: O47.03 False labor before 37 completed weeks of gestation, third trimester (principal); Z3A.33 33 weeks gestation of pregnancy
CPT/HCPCS: 59025; 96361; 96374; A9270; G0378; G0379; J2405; J7121

== ENCOUNTER 2024-03-09 18:14 | Observation (INO) | payer OTHER, SELFPAY ==
[2024-03-09 19:20] VITALS: PULSE 98; O2SAT 100
--- NOTE | 2024-03-09 19:24 | PC.NURSE ---
Called Dr. Lynn, update on pt, tracing, contractions, and blood pressure. Orders received to perform cervical exam and discharge pt if not dilated with instructions to keep next scheduled appointment and when to return to the unit.
[2024-03-09 19:25] VITALS: PULSE 93; O2SAT 100
[2024-03-09 19:52] VITALS: BMI 25.9
--- NOTE | 2024-03-09 20:03 | PC.NURSE ---
Pt discharged with instructions to keep next scheduled appointment and when to return to the unit. Pt verbalizes understanding.
--- NOTE | 2024-04-09 10:15 | PM.OBTRLD ---
OB - Triage/Final Diagnosis Visit Information Comments/Additional reasons for admission: I have assessed the risk for this patient, Helder Murdock, and determined that she would benefit from observation care. Final Diagnosis (1) Threatened labor: Code(s): O47.9 - False labor, unspecified Status: Acute
== END 2024-03-09 20:03 | disposition home or self-care (01) ==
PROVIDERS: Admitting Provider Obstetrics & Gynecology; PCP Family Medicine; Visit Provider Obstetrics & Gynecology
DX: O47.03 False labor before 37 completed weeks of gestation, third trimester (principal); Z3A.35 35 weeks gestation of pregnancy
CPT/HCPCS: G0378; G0379

== ENCOUNTER 2024-03-13 20:40 | Observation (INO) | payer OTHER, SELFPAY ==
--- NOTE | 2024-03-13 22:28 | OBADM ---
This patient, Helder Murdock, admitted to the OB room Labor/Delivery/Recovery 108 for observation. Patient/family oriented to hospital policies and general routines including ID bracelet, bed and alarms, visiting hours, pain management, procedures, bathroom and other care routines, personal items, smoking policy, room service/diet, and visiting hours. Patient/Family are encouraged to report perceived risks to care and to ask questions if they do not understand what they are told or what they should do.
--- NOTE | 2024-04-21 09:01 | PM.OBTRLD ---
OB - Triage/Final Diagnosis Visit Information Comments/Additional reasons for admission: I have assessed the risk for this patient, Helder Murdock, and determined that she would benefit from observation care. Final Diagnosis (1) Threatened labor, antepartum: Code(s): O47.00 - False labor before 37 completed weeks of gestation, unspecified trimester Status: Acute
== END 2024-03-13 22:24 ==
PROVIDERS: Admitting Provider Obstetrics & Gynecology; PCP Family Medicine; Visit Provider Obstetrics & Gynecology
DX: O47.03 False labor before 37 completed weeks of gestation, third trimester (principal); Z3A.36 36 weeks gestation of pregnancy
CPT/HCPCS: 84112; G0378; G0379

== ENCOUNTER 2024-03-15 13:20 | Outpatient (RCR) | payer OTHER, SELFPAY ==
[2024-02-12 12:02] LABS: Basophils Percent Auto 0.5 % (0.2-1.2); Eosinophils Absolute Auto 0.1 K/mm3 (0-0.3); Eosinophils Percent Auto 1.6 % (0-4.4); Hematocrit 34.8 % (37.0-47.0); Hemoglobin 10.7 g/dL (12.0-15.0); Immature Granulocyte Absolute 0.13 K/mm3 (0.00-0.031); Immature Granulocyte Percent A 1.5 % (0-0.5); Lymphocytes Absolute Auto 1.65 K/mm3 (0.9-3.2); Lymphocytes Percent Auto 19.1 % (18.3-44.2); Mean Corpuscular HGB Conc 30.7 g/dl (32-36); Mean Corpuscular Hemoglobin 28.1 pg (26-34); Mean Corpuscular Volume 91.3 fl (80-100); Mean Platelet Volume 9.7 fl (7.4-10.4); Monocytes Absolute Auto 0.4 K/mm3 (0.1-0.6); Monocytes Percent Auto 4.4 % (2.6-8.5); Neutrophils Absolute Auto 6.3 K/mm3 (1.3-6.7); Neutrophils Percent Auto 72.9 % (45.5-73.1); Platelet Count Result 213 k/mm3 (150-375); Red Blood Count 3.81 M/mm3 (4.2-5.4); Red Cell Distribution Width 13.1 % (11.5-14.5); White Blood Count 8.6 K/mm3 (4.5-10.0)
[2024-02-12 12:25] VITALS: BP 121/75; PULSE 95
[2024-02-16 15:43] VITALS: BP 112/65; PULSE 75
[2024-03-01 10:35] VITALS: BP 111/72; PULSE 80
[2024-03-08 10:50] VITALS: BP 111/71; PULSE 110
--- NOTE | 2024-03-08 10:56 | PC.NURSE ---
Called Dr. Lynn. Informed of decelerations and contractions noted on tracing. Contractions stopped with PO hydration. BPP 05/08 and KRZYSZTOF WNL. January D/C home.
--- NOTE | ~2024-03-15 | US_ITS ---
LIMITED OBSTETRIC ULTRASOUND Ordering provider: Kolby Oates MD History: . Growth scan . Comparison: None. FINDINGS/impression: Single live fetus. Gestational age is 34 weeks and 3 days.. ANA MARÍA is 04/23/2024. PRESENTATION: Vertex. Longitudinal lie. PLACENTAL LOCATION: Anterior. No previa. HEART RATE: 145 bpm (normal is between 110 to 160 bpm). AMNIOTIC FLUID INDEX: KRZYSZTOF is 10 CM. Largest vertical pocket is 2.9) cm. normal OTHER: Maternal ovaries not visualized. Estimated weight is 4 lb and 13oz Reviewed, dictated and finalized at location A.
--- NOTE | ~2024-03-15 | US_ITS ---
US OB limited w BPP DATE: 03/08/2024 10:54 INDICATION: Questionable deceleration. Intrauterine growth retardation. Measure KRZYSZTOF, BPP. TECHNIQUE: Real-time and Doppler imaging COMPARISON: 03/01/2024 obstetrical ultrasound FINDINGS: Live obrien intrauterine gestation in longitudinal lie, vertex presentation with h eart rate of 148 bpm. Amniotic anterior placenta. Subjectively normal amount of amniotic fluid. Deepest amniotic fluid pocket measures 5 cm. Amniotic fluid index measures 11.4 cm, within normal range. (5th percentile KRZYSZTOF: 7.9 cm; 95th percent ile: 24.9 cm) Cam rule out two-vessel and pleural cord. Consider further imaging with attention to this as needed. BIOPHYSICAL PROFILE reported by groundwater monitoring technician: breathin out of 2 movement: 2 out of 2 tone: 2 out of 2 Amniotic fluid pocket: 2 out of 2 Total score: 8 out of 8 IMPRESSION: Normal biophysical profile score of 8 out of 8 Normal amniotic fluid index of 11.4 Can't exclude 2 vessel umbilical cord; consider further imaging with attention to the umbilical cord as clinically appropriate. Reviewed, dictated and finalized at Location A. Reviewed, dictated and finalized at location A.
--- NOTE | ~2024-03-15 | US_ITS ---
US OB follow up DATE: 03/01/2024 10:33 INDICATION: History of positive antiphospholipid antibodies TECHNIQUE: Real-time imaging and Doppler analysis COMPARISON: 08/17/2023 obstetrical ultrasound FINDINGS: Live obrien intrauterine gestation, fetus in longitudinal lie, vertex presentation with heart rate of 161 bpm. Anterior placenta. Amniotic fluid index measures 9.3. (5th percentile KRZYSZTOF is 8.1 cm; 95th percentile KRZYSZTOF is 24.8 cm.) Biparietal diameter 8.53 cm; 34 weeks 3 days Head circumference 31.35 cm; 35 weeks 1 day Abdominal circumference 28.83 cm; 32 weeks 6 days Femur length 6.05 cm; 31 weeks 3 days Composite age by Hadlock formula based upon the current biometrics is 33 weeks 3 days +/- 2 weeks 2 d ays with ANA MARÍA of 04/16/2024, compared to 04/10/2024 ANA MARÍA by 08/17/2023 obstetrical ultrasound examination . Estimated weight is 2052 +/- 308 g. Head circumference/abdominal circumference 1.09, within upper normal range is 0.95-1.11. IMPRESSION: Borderline low amniotic fluid index of 9.3. Deepest amniotic fluid pocket is 5.2 cm. Vertex presentation Estimated weight is 2052 +/- 308 g Reviewed, dictated and finalized at [facility]. Reviewed, dictated and finalized at [facility].
[2024-03-15 14:27] VITALS: BP 110/76; PULSE 118
== END 2024-05-12 23:59 | disposition home or self-care (01) ==
LOC: ANHOBOP 13:20
PROVIDERS: PCP Family Medicine; Visit Provider Student in an Organized Health Care Education/Training Program
DX: D68.61 Antiphospholipid syndrome (principal)
CPT/HCPCS: 36415; 59025; 76815; 76816; 76819; 85025

== ENCOUNTER 2024-03-21 05:19 | Inpatient (IN) | payer OTHER, SELFPAY ==
[2024-03-21] VITALS (75 sets, daily range): BP systolic 95–138; BP diastolic 50–93; PULSE 25–177; RESP 18; TEMP 36.6–37.6; O2SAT 85–100; BMI 27.8
[2024-03-21 05:57] LABS: Basophils Percent Auto 0.4 % (0.2-1.2); Eosinophils Absolute Auto 0.2 K/mm3 (0-0.3); Eosinophils Percent Auto 2.6 % (0-4.4); Hematocrit 32.8 % (37.0-47.0); Hemoglobin 10.5 g/dL (12.0-15.0); Immature Granulocyte Absolute 0.13 K/mm3 (0.00-0.031); Immature Granulocyte Percent A 1.4 % (0-0.5); Lymphocytes Absolute Auto 2.41 K/mm3 (0.9-3.2); Lymphocytes Percent Auto 26.4 % (18.3-44.2); Mean Corpuscular Hemoglobin 26.9 pg (26-34); Mean Corpuscular Volume 83.9 fl (80-100); Mean Platelet Volume 10.1 fl (7.4-10.4); Monocytes Absolute Auto 0.6 K/mm3 (0.1-0.6); Monocytes Percent Auto 6.5 % (2.6-8.5); Neutrophils Absolute Auto 5.7 K/mm3 (1.3-6.7); Neutrophils Percent Auto 62.7 % (45.5-73.1); Platelet Count Result 235 k/mm3 (150-375); Red Blood Count 3.91 M/mm3 (4.2-5.4); Red Cell Distribution Width 15.5 % (11.5-14.5); White Blood Count 9.1 K/mm3 (4.5-10.0)
[2024-03-21 06:44] LABS: HIV 1/2 Ab P24 Ag Result Negative (Negative)
[2024-03-21] MEDS: miSOPROStol 25 MCG TABLET 50 MCG BUCCAL (07:39)
[2024-03-21] MEDS: LACTATED RINGERS 1,000 ML 125 ML IV CONT ×2 (08:27→09:52)
--- NOTE | 2024-03-21 09:15 | WPDANESEPP ---
Anes - Eval Pre Procedure Procedure: Labor Epidural Date/Time: 03/21/24 09:15 Surgeon: Lashon Preop Diagnosis: Labor pain Pre Op Diagnosis: Induction of Labor Patient Data Age: 28 Gender: F Height: 1.45 m Weight: 58.5 kg Last Vital Signs Temp 36.6 C 03/21/24 07:30 Pulse 89 03/21/24 09:00 BP 138/87 03/21/24 09:00 O2 Del Method Room Air 03/21/24 06:31 Allergies Allergy/AdvReac Type Severity Reaction Status Date / Time [facility] Allergy Intermediate Rash Verified 03/18/24 09:38 cefazolin [From [facility]] Allergy Intermediate Rash Verified 03/18/24 09:38 Home Medications Medication Instructions Recorded Confirmed Type aspirin 81 mg chewable tablet 81 mg PO DAILY 10/10/23 03/18/24 History ondansetron 4 mg disintegrating 4 mg PO Q6H #30 tabs 02/22/24 03/18/24 Rx tablet heparin (porcine) 5,000 unit/mL 5,000 unit subcut Q12H 03/11/24 03/18/24 History injection solution vits no.126-ferrous fum 1 tablet PO DAILY 03/15/24 03/18/24 History 28 mg iron-folic acid 800 mcg tablet (Classic ) Laboratory Tests 03/21/24 05:40 WBC 9.1 K/mm3 (4.5-10.0) RBC 3.91 L M/mm3 (4.2-5.4) Hgb 10.5 L g/dL (12.0-15.0) Hct 32.8 L % (37.0-47.0) MCV 83.9 fl (80-100) MCH 26.9 pg (26-34) MCHC 32.0 g/dl (32-36) RDW 15.5 H % (11.5-14.5) Plt Count 235 k/mm3 (150-375) MPV 10.1 fl (7.4-10.4) Immature Gran % (Auto) 1.4 H % (0-0.5) Neut % (Auto) 62.7 % (45.5-73.1) Lymph % (Auto) 26.4 % (18.3-44.2) Dawson % (Auto) 6.5 % (2.6-8.5) Eos % (Auto) 2.6 % (0-4.4) Baso % (Auto) 0.4 % (0.2-1.2) Lymph # (Auto) 2.41 K/mm3 (0.9-3.2) Dawson # (Auto) 0.6 K/mm3 (0.1-0.6) Eos # (Auto) 0.2 K/mm3 (0-0.3) Baso # (Auto) 0.0 K/mm3 (0.0-0.1) Abs Immat Gran (auto) 0.13 H K/mm3 (0.00-0.031) Absolute Neuts (auto) 5.7 K/mm3 (1.3-6.7) Absolute Nucleated RBC 0.000 K/mm3 (0.0-0.012) Nucleated RBC % 0.0 % (0.0-0.2) RPR Pending HIV 1&2 Ab/P24 Ag 4thGn Negative (Negative) Blood Type A Positive Antibody Screen Negative : gestational age (04/10/24) Patient hx anesthesia problems: none Family hx anesthesia problems: none Results Review: All pre-operative results and documents have been reviewed as part of the pre-operative evaluation. [facility] Past Medical History Medical History Anti-phospholipid antibody syndrome rx meds Encounter to determine viability of Suppression of menses Family History Family History Grandparent Cerebrovascular accident maternal grandmother Breast cancer maternal grandmother double mastectomy Social History Social History Smoking status: Never smoker Alcohol intake: never Substance use: never Substance use type: does not use Do You Feel Safe in your Home?: Yes Lack of Transportation: No Lack of Food: Never True Current Housing: I Have Housing Concerned About Future Housing: No Difficulty Paying Gas/Electric Bills: No Difficulty Paying for Meds: No Currently Unemployed: No Education: Bachelor's Degree Difficulty w/ Childcare or Family Care: No Living arrangements: other Additional living arrangements comments: Occupation/Education: other Additional occupation/education comments: homemaker Gender identity (if verbalized by the patient): Female Sexual Orientation (if Verbalized by the Patient): Straight or Heterosexual Spiritual care concerns: No Exam Day of Procedure 03/21/24 09:15 Heart: regular rate and rhythm Lungs: normal air movement Neurological: alert and oriented
[2024-03-21] MEDS: OXYTOCIN 30 UNITS/NS 500 ML 30 UNITS/500 ML BAG IV CONT ×2 (11:56→14:31)
--- NOTE | 2024-03-21 11:58 | PM.OBPNLAB ---
Pain Control Date/time seen: 03/21/24 11:58 Pain control: tolerating well and epidural Pelvic Exam Dilation (cm): 5 Effacement (%): 75 station: -1 Amniotic membrane status: Intact Contractions Monitor mode: External Contraction pattern: Regular Status status: Category l Assessment and Plan Assessment: induction ongoing Plan: begin patient augmentation Comments: AROM for clear fluid. IUPC placed. Will start Pitocin for augmentation
--- NOTE | 2024-03-21 13:52 | PM.OBPRVD ---
OB - Vaginal Delivery Note Procedure Delivery date: 03/21/24 Events: Intrauterine Growth Restriction (IUGR) and Other (antiphospholipid antibody syndrome ) Induction method: Per Misoprostol Protocol Delivery augmentation: Rupture of Membranes Delivery monitor: External FHT Route of delivery: Episiotomy description: None Laceration Description: Perineal - 1st Degree Delivery repair: vicryl Specimen: No Quantitative Blood Loss (ml): 150 Anesthesia type: Spinal Disposition: Floor Complications: No immediate complications Narrative: Patient pushed for a spontaneous vaginal delivery. A nuchal x 1 was noted and delivered through. The fetus was delivered atraumatically and placed on the maternal abdomen. The cord was clamped and cut after 1 minute of life. The cord was double clamped and cut and a segment of cord was collected for cord gases. Cord blood was collected for blood type and Coomb's testing. The placenta delivered spontaneously and was noted to be intact. The perineum was inspected and a first degree perineal laceration was noted. The laceration was repaired with 3-0 vicryl in the usual running fashion. Uterus palpated firm and good hemostasis was noted. Given patient recent heparin use, a prophylactic misoprostol was placed rectally for prevention of PPH. Mom and baby were bonding comfortably after delivery. [place] Baby Date of : 03/21/24 Time of : 13:40 Weeks of gestation at delivery: 37 gender: Male presentation: vertex position: Right Occiput Anterior Placenta delivery description: Spontaneous Cord Vessel Description: 3 Vessels and Nuchal Cord score one minute: 9 score five minutes: 9
[2024-03-21] MEDS: miSOPROStol 200 MCG TABLET 800 MCG (14:00)
[2024-03-21 14:05] LABS: Rapid Plasma Reagin Non-Reactive (NonReactive)
[2024-03-21] MEDS: IBUPROFEN 600 MG TABLET PO ×2 (16:14→22:47)
[2024-03-21] MEDS: BENZOCAINE 20% AER SPR (*SP) 56 GM CAN 1 SPRAY TOPICAL (16:15)
[2024-03-21] MEDS: WITCH HAZEL 40 PADS 1 PAD TOPICAL (16:15)
--- NOTE | 2024-03-21 16:30 | PC.NURSE ---
Patient transferred to post room #282 via wheelchair. Support person present. Oriented to unit, room, information board, rooming in, admission packet and security measures. Patient verbalizes understanding.
[2024-03-21] MEDS: ACETAMINOPHEN 325 MG TABLET 650 MG PO (19:12)
[2024-03-22 00:30] VITALS: BP 91/71; PULSE 84; RESP 16; TEMP 36.6; O2SAT 100
[2024-03-22] MEDS: ACETAMINOPHEN 325 MG TABLET 650 MG PO ×4 (01:02→23:12)
--- NOTE | 2024-03-22 01:17 | PC.NURSE ---
Baby's temp was taken at 1250 after feed and hearing screen was completed. Feeding was completed by RN. Baby noted to be a poor feeder with poor suck swallow reflex. Temp noted to be 97.6 at this time. Baby placed under the warmer until temp reached 99.1 Dr. Ovalle notified at 0110 that baby was placed under radiant warmer twice and is a poor feeder. No further orders at this time. states to keep baby bundled. Will educate mother and father on paced feeding and importance of keeping baby bundled.
[2024-03-22] MEDS: IBUPROFEN 600 MG TABLET PO ×4 (04:33→23:11)
[2024-03-22 04:50] LABS: Hematocrit 32.6 % (37.0-47.0); Hemoglobin 10.1 g/dL (12.0-15.0)
[2024-03-22 07:45] VITALS: BP 104/70; PULSE 75; RESP 16; TEMP 36.9
[2024-03-22] MEDS: DOCUSATE SODIUM 100 MG CAPSULE PO ×2 (07:47→17:41)
--- NOTE | 2024-03-22 08:15 | PM.OBPNVD ---
OB - PN: Subj Subjective Date/time seen: 03/22/24 08:15 Patient comments: no complaints, pain well controlled and tolerating diet [place] feeding status: exclusively breast feeding Narrative: patient doing well this AM. No complaints. Pain is well controlled. She reports minimal bleeding. She is ambulating and voiding without difficulty. She is tolerating PO. She denies N/V, fever, chills. OB - PN: Obj Data Labs 03/22/24 04:29 Labs: Laboratory Results - last 24 hr 03/21/24 03/22/24 05:40 04:29 Hgb 10.1 L Hct 32.6 L RPR Non-reactive OB - PN A/P Plan day: 1 Plan: routine care Comments: patient doing well H/H stable will continue prophylactic heparin BID x 6 wks continue routine care pt desires infant circumcision. Risks, benefits, alternatives discussed anticipate d/c home tomorrow Time Spent With Patient Time: Total time spent is greater than 50% in coordination of care (as documented) at patient's floor/unit and/or counseling patient: Time with patient: less than 15 minutes Review of Systems Review of Systems: All systems reviewed & are unremarkable except as noted in HPI and below Exam Const: General: comfortable and no acute distress Resp: Effort & Inspection: normal respiratory effort Cardio: Rate: regular rate GI: GI Palp: Yes Soft to palpation and No Tenderness to palpation present (GI) Auscultation: normal bowel sounds Other: fundus firm and below umbilicus. Psych: Affect: normal affect
[2024-03-22] MEDS: HEPARIN SODIUM 5,000 UNITS/ML VIAL 10000 UNITS SUB-Q ×2 (09:19→22:02)
[2024-03-22] MEDS: WITCH HAZEL 40 PADS 1 PAD TOPICAL (09:20)
[2024-03-22 15:46] LABS: Partial Thromboplastin Time 27.5 Seconds (22.3-36.8)
--- NOTE | 2024-03-22 16:35 | WPDANLDPN2 ---
Anes-Prog Note L&D Date/Time: 03/22/24 16:35 Comfortable throughout: labor and delivery Neuraxial method: epidural Epidural/Spinal procedure site: clean & non-tender Neuro status: Neuro function grossly intact. Cardiovascular status: normal Respiratory status: normal Airway patency: baseline Mental status: baseline Post-Op hydration status: normal Vital Signs: Last Vital Signs Temp 98.4 F 03/22/24 07:45 Pulse 75 03/22/24 07:45 Resp 16 03/22/24 07:45 BP 104/70 03/22/24 07:45 Pulse Ox 100 03/22/24 00:30 O2 Del Method Room Air 03/21/24 18:15 Pain score (VAS): 0 I/O: Intake & Output 03/22/24 03/22/24 03/22/24 07:59 15:59 23:59 Intake Total 240 0 Balance 240 0 Post-procedural complaints: none Patient feedback: Patient satisfied with anesthetic care.
[2024-03-22 20:00] VITALS: BP 123/72; PULSE 84; RESP 16; TEMP 36.8
[2024-03-22] MEDS: HYDROcodone/acetaminophen (*CRX) 5-325 MG TABLET 1 TAB (20:01)
[2024-03-22] MEDS: HYDROcodone/acetaminophen (*CRX) 5-325 MG TABLET 1 TAB PO (20:03)
[2024-03-23] MEDS: IBUPROFEN 600 MG TABLET PO ×2 (05:19→11:11)
[2024-03-23] MEDS: ACETAMINOPHEN 325 MG TABLET 650 MG PO ×2 (05:20→11:10)
[2024-03-23 08:05] VITALS: BP 113/72; PULSE 89; RESP 18; TEMP 36.8
[2024-03-23] MEDS: DOCUSATE SODIUM 100 MG CAPSULE PO (08:05)
[2024-03-23] MEDS: HYDROcodone/acetaminophen (*CRX) 5-325 MG TABLET 1 TAB PO (08:08)
[2024-03-23] MEDS: HEPARIN SODIUM 5,000 UNITS/ML VIAL 10000 UNITS SUB-Q (08:09)
--- NOTE | 2024-03-23 08:20 | PC.NURSE ---
Patient instructed on viewing the discharge video Mother & Baby Care, The First Two Weeks online. Patient was given the opportunity and encouraged to ask questions. Patient verbalized understanding of information shared and has been given the mother/baby guide for home reference.
--- NOTE | 2024-03-23 08:57 | PM.OBDSVD ---
DS: Admitting Diagnosis Discharge Date 03/23/24 Admitting Diagnosis intrauterine at term IUGR antiphospholipid antibody syndrome DS: Discharge Diagnosis Discharge Diagnosis (1) Normal vaginal delivery: Code(s): O80 - Encounter for full-term uncomplicated delivery Status: Acute OB - DS: Summary OB Procedures : None OB Procedures Intrapartum: Spontaneous Vag Delivery OB Procedures: : None Peripartum Data Laceration Description: Perineal - 1st Degree Episiotomy description: None Time Spent with Patient Time attestation: Total time spent providing and/or coordinating discharge services: DS: Data Data Completed and Pending Pending studies at discharge: Pending at discharge 03/21/24 14:01 Surgical [PTH] Routine Labs on day of discharge: Labs from last 24 hours 03/22/24 15:27 APTT 27.5 Discharge Plan Discharge Discharging Clinician: Kolby Oates Patient Disposition: Home, Self-Care Activity: as tolerated and pelvic rest Diet: regular Patient Instructions: Antibiotic Form, Vaginal Delivery (DC) Stand Alone Forms: General Discharge Information Follow-up/Referrals: Kolby Oates MD [Physician] - Discharge Medications: New hydrocodone-acetaminophen 5-325 mg tablet 1 tablet PO Q6H PRN (Reason: pain) Qty: 28 0RF heparin (porcine) 5,000 unit/mL Solution 10,000 unit subcut Q12HR 42 Days Qty: 168 0RF ibuprofen 600 mg tablet 600 mg PO Q6H PRN (Reason: pain) Qty: 30 0RF Continued Classic 28 mg iron- 800 mcg Tablet 1 tablet PO DAILY Discontinued aspirin 81 mg tablet,chewable 81 mg PO DAILY heparin (porcine) 5,000 unit/mL solution 5,000 unit subcut Q12H ondansetron 4 mg Tablet,Disintegrating 4 mg PO Q6H Qty: 30 0RF Date of admission: 03/21/24 05:19 Primary Care Provider: AyoCarly Admitting Provider: Kolby Oates Attending physician on admission: Kolby Oates Condition: Stable
[2024-03-25 10:31] VITALS: BP 118/86; PULSE 83; RESP 18; TEMP 37.3; O2SAT 100
== END 2024-03-23 11:45 | disposition home or self-care (01) | DRG 806 ==
LOC: ANHLDR 05:23 → ANHOB2 16:44
PROVIDERS: Admitting Provider Student in an Organized Health Care Education/Training Program; PCP Family Medicine; Visit Provider Student in an Organized Health Care Education/Training Program
DX: O36.5930 Maternal care for other known or suspected poor fetal growth, third trimester, not applicable or unspecified (principal); D68.61 Antiphospholipid syndrome; Z37.0 Single live birth; O99.12 Other diseases of the blood and blood-forming organs and certain disorders involving the immune mechanism complicating childbirth; Z3A.37 37 weeks gestation of pregnancy; O70.0 First degree perineal laceration during delivery; O69.81X0 Labor and delivery complicated by cord around neck, without compression, not applicable or unspecified
CPT/HCPCS: 36415; 85014; 85018; 85025; 85730; 86592; 86703; 86850; 86900; 86901; 88307; A9270; G0432; J1644; J2590; J2795; J7120